=== PATIENT | male | born 2000 | race Asian ===

== ENCOUNTER 2024-08-29 10:47 | Emergency (ER) | payer SELFPAY ==
[~2024-08-29] VITALS: Ht 167.6 cm; Wt 81.8 kg
[~2024-08-29 10:47] MED LIST: NOCURR
[2024-08-29] MEDS: MethylPREDNISolone SOD SUCC 125 MG/2 ML VIAL IVP ONE (11:30)
[2024-08-29] MEDS: FAMOTIDINE 20 MG/2 ML VIAL IVP ONE (11:30)
[2024-08-29] MEDS: DiphenhydrAMINE HCL 50 MG/ML VIAL IVP ONE (11:31)
[2024-08-29] MEDS ORDERED: DIPH50 PO (13:22)
[2024-08-29] MEDS ORDERED: PRED-554 PO (13:22)
[2024-08-29 13:23] VITALS: BP 125/61; PULSE 84; RESP 16; TEMP 98.4; O2SAT 99
== END 2024-08-29 13:28 | disposition home or self-care (01) ==
LOC: EMS 10:50
DX: T78.40XA Allergy, unspecified, initial encounter (principal); X58.XXXA Exposure to other specified factors, initial encounter
CPT/HCPCS: 99284; 96374; 96375; J2919; J1200; J3490